=== PATIENT | male | born 1950 | race Caucasian/White ===

== ENCOUNTER 2016-12-02 09:15 | Outpatient (CLI) | payer MEDICARE, OTHER ==
[2016-12-02] MEDS ORDERED: ALBUTEROL NEB 2.5 MG/3 ML INH ONE (09:55)
== END 2016-12-02 09:16 | disposition home or self-care (01) ==
DX: R06.2 Wheezing (principal)
CPT/HCPCS: 94060; J7613

== ENCOUNTER 2020-02-03 11:58 | Emergency (ER) | payer MEDICARE, OTHER ==
[2020-02-03 12:06] VITALS: BP 190/90
--- NOTE | 2020-02-03 12:10 | ED Physician Documentation ---
PD HPI LOWER EXT INJURY - Stated complaint Stated Complaint: L FOOT PX - Chief complaint Chief Complaint: Ext Problem - History obtained from History obtained from: Patient - History of Present Illness PD HPI LOW EXT INJURY LOCATION: Left, Foot Type of injury: No: Fall, Twist, Blunt / blow Where injury occurred: Home Timing - onset: How many days ago (4) Timing - duration: Days (4) Timing - details: Gradual onset, Still present (worsening but staying localized to great toe MTP medial aspect) Associated symptoms: Swelling, Discolored (red mildly). No: Weakness, Numbness Similar symptoms before: Has not had sx before Review of Systems Constitutional: denies: Fever, Chills, Myalgias Nose: denies: Rhinorrhea / runny nose, Congestion Throat: denies: Sore throat Cardiac: denies: Chest pain / pressure Respiratory: denies: Cough GI: denies: Nausea, Vomiting Musculoskeletal: reports: Joint pain (just the great toe, no other joints.), Joint swelling PD PAST MEDICAL HISTORY - Past Medical History Cardiovascular: None Neuro: None Musculoskeletal: None, Other (no history of gout but father has it often. ) - Present Medications Home Medications: Ambulatory Orders Medication Instructions Recorded Confirmed Colchicine 0.6 mg PO BID PRN #10 capsule 02/03/20 Hydrocodone/Acetaminophen [[place] 1 each PO Q6H PRN #20 tablet 02/03/20 5-325 Tablet] Indomethacin 25 mg PO TID #20 capsule 02/03/20 dexAMETHasone [Decadron] 4 mg PO DAILY #5 tablet 02/03/20 - Allergies Allergies/Adverse Reactions: Allergies Allergy/AdvReac Type Severity Reaction Status Date / Time No Known Drug Allergies Allergy Verified 02/03/20 12:54 - Social History Does the pt smoke?: No Does the pt drink ETOH?: Yes ETOH Use: Beer Does the pt have substance abuse?: No - Family History Family history: denies: Venous thromboembolism PD ED PE NORMAL - Vitals Vital signs reviewed: Yes - General General: Alert and oriented X 3, No acute distress, Well developed/nourished - Derm Derm: Normal color, Warm and dry - Extremities Extremities: Other (left great toe MTP with medial and plantar tenderness, redness, swelling. Some effusion. Painful to touch and ROM. No noted skin lesions, infections. ) Results - Vitals Vitals: Vital Signs - 24 hr 02/03/20 12:03 Temperature 36.8 C Heart Rate 81 Respiratory 16 Rate Blood Pressure 190/90 H O2 Saturation 98 Oxygen O2 Source Room air PD MEDICAL DECISION MAKING - ED course Complexity details: considered differential (seems most likely gout clinically. No skin sores. Redness is not angry per se, and no other areas of redness/skin lesions. Shared decision to go with gout Dx. ), d/w patient Departure - Departure Disposition: Home, Self Care Clinical Impression: Great toe pain Qualifiers: Laterality: left Qualified Code(s): M79.675 - Pain in left toe(s) Acute gout Qualifiers: Gout site: toe Gout etiology: unspecified cause Laterality: left Qualified Code(s): M10.9 - Gout, unspecified Condition: Stable Record reviewed to determine appropriate education?: Yes Instructions: ED Arthritis Gout Follow-Up: Trev Hudson MD [Primary Care Provider] - Prescriptions: Colchicine 0.6 mg PO BID PRN #10 capsule PRN Reason: Pain dexAMETHasone [Decadron] 4 mg PO DAILY #5 tablet Hydrocodone/Acetaminophen [[place] 5-325 Tablet] 1 each PO Q6H PRN #20 tablet PRN Reason: Pain Indomethacin 25 mg PO TID #20 capsule Comments: This appears to be gout. And we can treat it that way initially and see how much improvement you have over the next 2 to 3 days. This would be typically treated with anti-inflammatories and gout's particular medicines. Be sure to take the medications with food so they do not bother your stomach and decrease on the colchicine in particular if you are feeling nauseous. Add Tylenol 4 times a day or hydrocodone as needed. Recheck if not improved well over the next several days and return sooner if worse. Firm soled shoe to help reduce motion and irritation at the joint. Discharge Date/Time: 02/03/20 13:24
[2020-02-03] MEDS: INDOMETHACIN 25 MG CAPSULE PO STA (12:59)
[2020-02-03] MEDS: COLCHICINE 0.6 MG TABLET PO STA (12:59)
[2020-02-03] MEDS: CHERRY SYRUP 10 ML UDC PO ONE (12:59)
[2020-02-03] MEDS: DEXAMETHASONE 10 MG/ML VIAL PO STA (12:59)
== END 2020-02-03 13:24 | disposition home or self-care (01) ==
LOC: ED 11:58
DX: M10.9 Gout, unspecified (principal)
CPT/HCPCS: 99283; A9270

== ENCOUNTER 2022-02-02 14:05 | Outpatient (CLI) | payer MEDICARE, OTHER ==
--- NOTE | 2022-02-02 17:21 | XRAY Report ---
PROCEDURE: Shoulder 2 View BILAT INDICATIONS: BILATERAL SHOULDER JOINT PAIN TECHNIQUE: 2 views of the shoulder were acquired. COMPARISON: None. FINDINGS: Bones: No fractures or dislocations. No suspicious bony lesions. Visualized ribs appear intact. M oderate to severe bilateral acromioclavicular degenerative narrowing. Soft tissues: No suspicious soft tissue calcifications. IMPRESSION: Moderate to severe bilateral acromioclavicular degenerative narrowing. Reviewed by: Winsome Dowling MD on 02/02/2022 5:19 PM PDT Approved by: Winsome Dowling MD on 02/02/2022 5:19 PM PDT Station ID: [id number]
[2022-02-02 19:57] LABS: BASOPHILS # (AUTO) 0.1 10^3/uL (0.0-0.1); BASOPHILS % (AUTO) 1.3 %; EOSINOPHILS # (AUTO) 0.8 10^3/uL (0.0-0.7); HCT - HEMATOCRIT 46.7 % (42.0-52.0); HGB - HEMOGLOBIN 15.1 g/dL (14.0-18.0); LYMPHOCYTES # (AUTO) 1.7 10^3/uL (1.5-3.5); MEAN CORPUSCULAR HEMOGLOBIN 30.7 pg (27.0-31.0); MEAN CORPUSCULAR HGB CONC 32.3 g/dL (32.0-36.0); MEAN CORPUSCULAR VOLUME 94.9 fL (80.0-94.0); MEAN PLATELET VOLUME 9.3 fL (7.4-11.4); MONOCYTES # (AUTO) 0.6 10^3/uL (0.0-1.0); NEUTROPHILS # (AUTO) 7.2 10^3/uL (1.5-6.6); NEUTROPHILS % (AUTO) 68.2 %; PLT - PLATELET COUNT 278 10^3/uL (130-450); RED BLOOD COUNT 4.92 10^6/uL (4.70-6.10); RED CELL DISTRIBUTION WIDTH 13.1 % (12.0-15.0); WHITE BLOOD COUNT 10.5 x10^3/uL (4.8-10.8)
[2022-02-02 20:17] LABS: ALBUMIN 4.3 g/dL (3.2-5.5); ALBUMIN/GLOBULIN RATIO 1.3 (1.0-2.2); ALKALINE PHOSPHATASE 64 IU/L (42-121); ALT ALANINE AMINOTRANSFERASE 33 IU/L (10-60); AST ASPARTATE AMINOTRANSFERASE 26 IU/L (10-42); BILIRUBIN,TOTAL 0.8 mg/dL (0.2-1.0); BUN - BLOOD UREA NITROGEN 20 mg/dL (6-20); CALCIUM 9.4 mg/dL (8.5-10.3); CARBON DIOXIDE - CO2 28 mmol/L (21-32); CHLORIDE 101 mmol/L (101-111); CREATININE 1.2 mg/dL (0.6-1.2); GFR - MDRD 59 (>89); GLUCOSE 155 mg/dL (70-100); POTASSIUM 4.6 mmol/L (3.5-5.0); SODIUM 139 mmol/L (135-145); TOTAL PROTEIN 7.6 g/dL (6.7-8.2)
[2022-02-02 20:18] LABS: CRP - C-REACTIVE PROTEIN < 1.0 mg/dL (0-1.0)
== END 2022-02-02 14:06 | disposition home or self-care (01) ==
LOC: DI.S 14:05
PROVIDERS: ATTEND Physician Assistant
DX: M19.011 Primary osteoarthritis, right shoulder (principal); M19.012 Primary osteoarthritis, left shoulder
CPT/HCPCS: 36415; 80053; 85025; 85651; 86140

== ENCOUNTER 2023-08-06 10:58 | Emergency (ER) | payer MEDICARE, BC ==
[2023-08-06 11:19] VITALS: BP 159/78; O2SAT 96
[2023-08-06] MEDS ORDERED: DEXAMETHASONE 10 MG/ML VIAL IM STA (11:49)
[2023-08-06] MEDS ORDERED: KETOROLAC 60 MG/2 ML VIAL IM STA (11:49)
--- NOTE | 2023-08-06 11:55 | ED Physician Documentation ---
History of Present Illness - Stated complaint Stated Complaint: LT HIP PX - Chief complaint Chief Complaint: Ext Problem - History obtained from History obtained from: Patient - Additonal information Additional information: The patient comes to the emergency department chief complaint of left groin pain. He states he initially had left lateral hip pain that started about 5 days ago. He states that he could push on the spot where it hurt and it did not seem to interfere with his walking or any activity otherwise. He went on a hike the next day and did not feel too bad, but the day after that, he noticed pain in both his proximal medial thighs. He states that this was up toward his groin area. He denies any testicular or scrotal symptoms. No bulging. He has no history of DVT. He did not have a distinct injury to the area. The patient states that the pain seemed to subside on the right but really localized to the left. He points to his innermost thigh a few centimeters distal to his inguinal ligament. He denies any swelling or pain in his distal left lower extremity. He has a history of gout but states that he is not having any gout symptoms right now. No other complaints at this time. He states that the pain is the worst when he is walking and goes to flex his hip to swing his leg forward. He states that just standing and bearing weight does not cause much pain. PD PAST MEDICAL HISTORY - Past Medical History Past Medical History: Yes Cardiovascular: Hypertension, High cholesterol Neuro: None Endocrine/Autoimmune: Type 2 diabetes Musculoskeletal: None, Other - Past Surgical History Past Surgical History: Yes HEENT: Other - Present Medications Home Medications: Ambulatory Orders Medication Instructions Recorded Confirmed Atorvastatin [Lipitor] 20 mg PO QPM 08/06/23 08/06/23 HYDROcod/ACETAM 5/325 [[place] 5/325] 1 - 2 tablet PO Q6H PRN #10 tablet 08/06/23 Ibuprofen [Motrin] 800 mg PO Q8H PRN #30 tablet 08/06/23 Lisinopril [Zestril] 30 mg PO DAILY PM 08/06/23 08/06/23 metFORMIN [Glucophage] 500 mg PO BIDWM 08/06/23 08/06/23 predniSONE [Deltasone] 10 mg PO [id number] #42 tab 08/06/23 - Allergies Allergies/Adverse Reactions: Allergies Allergy/AdvReac Type Severity Reaction Status Date / Time No Known Drug Allergies Allergy Verified 08/06/23 11:17 - Social History Does the pt smoke?: No Smoking Status: Never smoker Does the pt drink ETOH?: Yes Does the pt have substance abuse?: No - Immunizations Immunizations are current?: Yes - POLST Patient has POLST: No PD ED PE NORMAL - Vitals Vital signs reviewed: Yes - General General: Alert and oriented X 3, No acute distress, Well developed/nourished - HEENT HEENT: Atraumatic, PERRL, EOMI, Moist mucous membranes - Neck Neck: Supple, no meningeal sign - Cardiac Cardiac: RRR, No murmur - Respiratory Respiratory: No respiratory distress, Clear bilaterally - Abdomen Abdomen: Soft, Non tender, Non distended - Male Male : Deferred - Derm Derm: Normal color, Warm and dry - Extremities Extremities: No deformity, No edema, No calf tenderness / cord, Other (Tenderness palpation, mild, over left inguinal ligament. Tenderness to palpation of the proximal thigh musculature medially without defect or mass. No fluctuance.) - Neuro Neuro: Alert and oriented X 3, No motor deficit, No sensory deficit - Psych Psych: Normal mood, Normal affect Results - Vitals Vitals: Vital Signs - 24 hr 08/06/23 11:12 Temperature 36.8 C Heart Rate 72 Respiratory 16 Rate Blood Pressure 159/78 H O2 Saturation 96 Oxygen O2 Source Room air PD Medical Decision Making - ED course Complexity details: considered differential, d/w patient, d/w family ED course: I discussed with the patient that we could get x-rays, but these are unlikely to be of much help or to loom changer. The patient is already known to have arthritis in his left hip joint and his symptoms seem to be more soft tissue in origin. Furthermore, the patient has not had any distinct injury to raise specific concerns. His symptoms do not sound likely to represent a DVT, and as such, I do not feel ultrasound is likely to be helpful. At this point in time, we will plan to treat the patient symptomatically. He will make an appointment with his primary doctor from for 2 to 3 weeks from now in case he is continuing to have symptoms, and that way, he can discuss MRI at that time, as this is the test which is most likely to be helpful if this does not blow over on its own. The patient is agreeable to the plan. We have discussed the usual indications for return. The patient has been treated with Decadron and Toradol in the ED and given a pair of crutches as well as prescriptions for symptomatic management at home. Departure - Departure Disposition: 01 Home, Self Care Clinical Impression: Strain of hip flexor Qualifiers: Encounter type: initial encounter Laterality: left Qualified Code(s): S76.012A - Strain of muscle, fascia and tendon of left hip, initial encounter Condition: Stable Instructions: ED Strain Muscle Ext Prescriptions: predniSONE [Deltasone] 10 mg PO [id number] #42 tab Ibuprofen [Motrin] 800 mg PO Q8H PRN #30 tablet PRN Reason: PAIN &/OR FEVER HYDROcod/ACETAM 5/325 [[place] 5/325] 1 - 2 tablet PO Q6H PRN #10 tablet PRN Reason: Pain Comments: Your symptoms are most consistent with a soft tissue injury to the upper partier inner thigh. This is most likely involving the a strain of the muscles that either bring your leg forward at the hip or bring your leg toward the center. In general, soft tissue injuries get better on their own and there is not a lot to be done, other than manage the symptoms and give time for your body to heal. If you are continuing to have symptoms with no improvement, you should see your doctor to discuss having an MRI done. For now, you may use the crutches as need ed to assist with walking until you are feeling better. You may bear weight as much as you want. Your prescriptions have been electronically transmitted to the [facility] in [place].
== END 2023-08-06 12:38 | disposition home or self-care (01) ==
LOC: ED 10:58
DX: S76.012A Strain of muscle, fascia and tendon of left hip, initial encounter (principal); X58.XXXA Exposure to other specified factors, initial encounter; I10 Essential (primary) hypertension; E11.9 Type 2 diabetes mellitus without complications; Z79.84 Long term (current) use of oral hypoglycemic drugs
CPT/HCPCS: 96372; 99283

== ENCOUNTER 2024-01-05 16:29 | Outpatient (CLI) | payer OTHER, BC, MEDICARE | END 2024-01-05 23:59 | disposition critical access hospital (66) | LOC: EMS 16:29 | DX: M54.6 Pain in thoracic spine (principal); M25.512 Pain in left shoulder; M25.511 Pain in right shoulder; M54.2 Cervicalgia; R20.2 Paresthesia of skin; V53.5XXA Driver of pick-up truck or van injured in collision with car, pick-up truck or van in traffic accident, initial encounter; W22.11XA Striking against or struck by driver side automobile airbag, initial encounter; Y92.413 State road as the place of occurrence of the external cause | CPT/HCPCS: A0425; A0429 ==

== ENCOUNTER 2024-01-05 17:02 | Emergency (ER) | payer OTHER, MEDICARE, BC ==
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
[2024-01-05] MEDS: oxyCODONE 5 MG TABLET PO STA ×2 (17:53→19:26)
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
[2024-01-05] MEDS: tiZANidine 4 MG TABLET PO STA (19:26)
[2024-01-05 20:30] VITALS: BP 153/63; O2SAT 100
== END 2024-01-05 20:25 | disposition home or self-care (01) ==
LOC: EDUNIT# → ED 17:02
DX: S16.1XXA Strain of muscle, fascia and tendon at neck level, initial encounter (principal); V89.2XXA Person injured in unspecified motor-vehicle accident, traffic, initial encounter; Y93.89 Activity, other specified; Y92.411 Interstate highway as the place of occurrence of the external cause
CPT/HCPCS: 70450; 71250; 72125; 99284; A9270